=== PATIENT | male | born 1960 | race Hispanic/Latino ===

== ENCOUNTER 2020-12-16 17:02 | Emergency (ER) | payer SELFPAY ==
[~2020-12-16] VITALS: Ht 175.3 cm; Wt 78.2 kg
[2020-12-16 18:44] LABS: HEMATOCRIT 30.3 % (39.0-50.0); HEMOGLOBIN 8.9 g/dl (14.0-18.0); IMMATURE GRANULOCYTES 0.7 % (0.0-5.0); MEAN CELL VOLUME 83.7 fL CALC (80.0-100.0); MEAN CORPUSCULAR HGB 24.6 pG CALC (26.0-32.0); MEAN CORPUSCULAR HGB CONC 29.4 g/dL CAL (32.0-36.0); NEUT# 11.12 thou/uL (1.82-7.42); RED BLOOD COUNT 3.62 mill/uL (4.70-6.10); RED CELL DISTRI WIDTH 15.2 % (11.5-15.5)
[2020-12-16 19:12] LABS: ALBUMIN 3.6 g/dL (3.2-5.0); ALKALINE PHOSPHATASE 114 u/l (38-126); ANION GAP 18 (6-22 (CALC)); BILIRUBIN, TOTAL 2.1 mg/dL (0.0-1.4); BUN 30 mg/dL (9-20); BUN/CREATININE RATIO 25 (12-20 (CALC)); CARBON DIOXIDE 19 mmol/l (22-30); CHLORIDE 103 mmol/l (95-108); CREATININE 1.2 mg/dL (0.7-1.3); GFR > 60 ML/MIN (>=60 (CALC)); GFR FOR AFR.AMER. > 60 ML/MIN (>=60 (CALC)); LIPASE 93 u/l (23-300); SGOT/AST 75 u/l (17-59); SODIUM 133 mmol/l (137-146); TOTAL PROTEIN 6.9 g/dL (6.3-8.2)
[2020-12-16] MEDS ORDERED: INDERAL 40MG TA40 MG PO (20:02)
[2020-12-16] MEDS ORDERED: FEOSOL200 MG PO (20:04)
[2020-12-16] MEDS ORDERED: OMEPRAZOLE20 MG PO (20:05)
[2020-12-16 20:55] LABS: URINE BILIRUBIN - DIPSTICK NEGATIVE (NEGATIVE); URINE BLOOD DIPSTICK NEGATIVE (NEGATIVE); URINE COLOR YELLOW; URINE GLUCOSE - DIPSTICK NEGATIVE (NEGATIVE); URINE KETONE NEGATIVE (NEGATIVE); URINE LEUK ESTERASE NEGATIVE (NEGATIVE); URINE NITRITE - DIPSTICK NEGATIVE (Negative); URINE PROTEIN - DIPSTICK NEGATIVE (NEG-TRACE); URINE SPECIFIC GRAVITY 1.015; URINE UROBILINOGEN - DIPSTICK 0.2 E.U./dL (0.2)
[2020-12-16 20:59] VITALS: BP 107/54
== END 2020-12-16 22:20 | DRG 369 ==
LOC: ED 17:02
PROVIDERS: Family Medicine
DX: I85.01 Esophageal varices with bleeding (principal); E87.2 Acidosis; E87.5 Hyperkalemia; I10 Essential (primary) hypertension; E11.9 Type 2 diabetes mellitus without complications; Z20.822 Contact with and (suspected) exposure to COVID-19
CPT/HCPCS: J2354; S0164

== ENCOUNTER 2020-12-23 07:45 | Emergency (ER) | payer SELFPAY ==
[~2020-12-23] VITALS: Ht 175.3 cm; Wt 70.0 kg
[~2020-12-23 07:45] MED LIST: FEOSOL200 MG PO; INDERAL 40MG TA40 MG PO; OMEPRAZOLE20 MG PO
[2020-12-23] MEDS ORDERED: METFORMIN500 M2 PO (08:12)
[2020-12-23] MEDS ORDERED: PAROXETINE20 MG PO (08:12)
[2020-12-23] MEDS ORDERED: LISINOPRIL2.5 MG PO (08:13)
[2020-12-23] MEDS ORDERED: GLIMEPIRIDE2 MG PO (08:14)
[2020-12-23 08:18] LABS: HEMATOCRIT 24.9 % (39.0-50.0); HEMOGLOBIN 7.6 g/dl (14.0-18.0); IMMATURE GRANULOCYTES 1.2 % (0.0-5.0); MEAN CELL VOLUME 86.5 fL CALC (80.0-100.0); MEAN CORPUSCULAR HGB 26.4 pG CALC (26.0-32.0); MEAN CORPUSCULAR HGB CONC 30.5 g/dL CAL (32.0-36.0); NEUT# 5.78 thou/uL (1.82-7.42); RED BLOOD COUNT 2.88 mill/uL (4.70-6.10); RED CELL DISTRI WIDTH 17.6 % (11.5-15.5)
[2020-12-23 08:30] LABS: ALKALINE PHOSPHATASE 147 u/l (38-126); CARBON DIOXIDE 20 mmol/l (22-30); CHLORIDE 103 mmol/l (95-108); CREATININE 0.8 mg/dL (0.7-1.3); GFR > 60 ML/MIN (>=60 (CALC)); GFR FOR AFR.AMER. > 60 ML/MIN (>=60 (CALC)); SGOT/AST 63 u/l (17-59); SODIUM 132 mmol/l (137-146); TOTAL PROTEIN 5.6 g/dL (6.3-8.2)
[2020-12-23 08:33] LABS: ALBUMIN 2.5 g/dL (3.2-5.0); ANION GAP 13 (6-22 (CALC)); BUN 9 mg/dL (9-20); BUN/CREATININE RATIO 11 (12-20 (CALC)); POTASSIUM 3.5 mmol/l (3.5-5.1)
[2020-12-23 11:01] LABS: URINE BLOOD DIPSTICK NEGATIVE (NEGATIVE); URINE GLUCOSE - DIPSTICK NEGATIVE (NEGATIVE); URINE KETONE NEGATIVE (NEGATIVE); URINE LEUK ESTERASE NEGATIVE (NEGATIVE); URINE NITRITE - DIPSTICK NEGATIVE (Negative); URINE PROTEIN - DIPSTICK TRACE mg/dL (NEG-TRACE); URINE UROBILINOGEN - DIPSTICK 0.2 E.U./dL (0.2)
[2020-12-23 11:06] LABS: URINE BILIRUBIN - DIPSTICK SMALL (NEGATIVE); URINE COLOR DK. YELLOW
[2020-12-23 12:35] VITALS: BP 101/55
== END 2020-12-23 12:35 | disposition short-term general hospital (02) | DRG 432 ==
LOC: ED 07:45
PROVIDERS: Family Medicine
DX: K74.60 Unspecified cirrhosis of liver (principal); I85.11 Secondary esophageal varices with bleeding; K76.6 Portal hypertension; E11.9 Type 2 diabetes mellitus without complications; I10 Essential (primary) hypertension; Z79.84 Long term (current) use of oral hypoglycemic drugs; Z20.822 Contact with and (suspected) exposure to COVID-19
CPT/HCPCS: J2354; Q9967; S0164

== ENCOUNTER 2021-02-28 | Emergency (ER) | payer SELFPAY ==
[~2021-02-28] MED LIST changes: +GLIMEPIRIDE2 MG PO; +LISINOPRIL2.5 MG PO; +METFORMIN500 M2 PO; +PAROXETINE20 MG PO
[2021-02-28] MEDS ORDERED: SPIRONOLACTONE25 MG PO (14:34)
[2021-02-28 14:35] LABS: HEMATOCRIT 25.5 % (39.0-50.0); IMMATURE GRANULOCYTES 0.3 % (0.0-5.0); MEAN CORPUSCULAR HGB 22.1 pG CALC (26.0-32.0); MEAN CORPUSCULAR HGB CONC 27.5 g/dL CAL (32.0-36.0); NEUT# 1.99 thou/uL (1.82-7.42); RED BLOOD COUNT 3.17 mill/uL (4.70-6.10); RED CELL DISTRI WIDTH 23.1 % (11.5-15.5)
[2021-02-28] MEDS ORDERED: FEROSUL325 MG PO (14:35)
[2021-02-28] MEDS ORDERED: VITAMIN D5000 UNI1 PO (14:36)
[2021-02-28] MEDS ORDERED: DOK100 MG PO (14:36)
[2021-02-28] MEDS ORDERED: OMEPRAZOLE20 MG PO (14:37)
[2021-02-28] MEDS ORDERED: GAVILA1 (14:37)
[2021-02-28 14:41] LABS: HEMOGLOBIN 7.1 g/dl (14.0-18.0); MEAN CELL VOLUME 80.4 fL CALC (80.0-100.0)
[2021-02-28 15:11] LABS: INTERNATIONAL NORMALIZED RATIO 1.3 RATIO (0.7-1.3); PROTHROMBIN TIME 12.7 SECONDS (9.0-12.5)
[2021-02-28 15:12] LABS: ALKALINE PHOSPHATASE 146 u/l (38-126); ANION GAP 10 (6-22 (CALC)); BUN 8 mg/dL (9-20); BUN/CREATININE RATIO 11 (12-20 (CALC)); CARBON DIOXIDE 24 mmol/l (22-30); CHLORIDE 106 mmol/l (95-108); CREATININE 0.7 mg/dL (0.7-1.3); GFR > 60 ML/MIN (>=60 (CALC)); GFR FOR AFR.AMER. > 60 ML/MIN (>=60 (CALC)); POTASSIUM 3.9 mmol/l (3.5-5.1); SGOT/AST 33 u/l (17-59); SODIUM 136 mmol/l (137-146)
[2021-02-28 15:14] LABS: ALBUMIN 3.1 g/dL (3.2-5.0); BILIRUBIN, TOTAL 1.1 mg/dL (0.0-1.4); TOTAL PROTEIN 7.7 g/dL (6.3-8.2)
[2021-02-28 15:23] LABS: URINE BLOOD DIPSTICK NEGATIVE (NEGATIVE); URINE COLOR YELLOW; URINE GLUCOSE - DIPSTICK NEGATIVE (NEGATIVE); URINE KETONE NEGATIVE (NEGATIVE); URINE LEUK ESTERASE NEGATIVE (NEGATIVE); URINE PROTEIN - DIPSTICK TRACE mg/dL (NEG-TRACE); URINE SPECIFIC GRAVITY >=1.030; URINE UROBILINOGEN - DIPSTICK 0.2 E.U./dL (0.2)
[2021-02-28 15:25] LABS: URINE BILIRUBIN - DIPSTICK SMALL (NEGATIVE); URINE NITRITE - DIPSTICK NEGATIVE (Negative)
== END 2021-02-28 19:55 | disposition short-term general hospital (02) | DRG 378 ==
PROVIDERS: Emergency Medicine
DX: K92.0 Hematemesis (principal); D64.9 Anemia, unspecified; K76.6 Portal hypertension; I85.10 Secondary esophageal varices without bleeding; K74.60 Unspecified cirrhosis of liver; R18.8 Other ascites; I10 Essential (primary) hypertension; E11.9 Type 2 diabetes mellitus without complications; Z79.84 Long term (current) use of oral hypoglycemic drugs; Z20.822 Contact with and (suspected) exposure to COVID-19
CPT/HCPCS: J2354; Q9967